=== PATIENT | female | born 1960 | race Caucasian/White ===

== ENCOUNTER 2017-11-13 13:48 | Emergency (ER) | payer OTHER ==
[2017-11-13] MEDS ORDERED: Hydrocodone/APAP 10 mg/325 mg Tab PO STA (15:21)
[2017-11-13 15:39] LABS: % BASOPHILS 0.2 % (0.0-2.0); % EOSINOPHILS 1.4 % (0.0-5.0); % MONOCYTES 7.4 % (2.0-10.0); EOSINOPHILE ABSOLUTE 0.1 Th/cmm (0.1-0.4); HEMOGLOBIN 15.4 gm/dL (12-16); LYMPHOCYTE ABSOLUTE 1.6 Th/cmm (1.5-3.0); MEAN CELL VOLUME 87.2 fl (81-100); MEAN CORPUSCULAR HEMOGLOBIN 29.2 pg (27.0-31.0); MEAN CORPUSCULAR HGB CONC 33.6 pg (28.0-36.0); MEAN PLATELET VOLUME 7.7 fl; MONOCYTE ABSOLUTE 0.5 Th/cmm (0.3-1.0); NEUTROPHILE ABSOLUTE 3.9 Th/cmm (1.8-8.0); PLATELET COUNT 218 Th/cmm (150-400); RED BLOOD COUNT 5.28 Mil/cmm (3.80-5.10); RED CELL DISTRIBUTION WIDTH 13.5 % (11.5-20.0); WHITE BLOOD COUNT 6.1 Th/cmm (4.8-10.8)
[2017-11-13 15:45] LABS: ALB/GLOB RATIO 1.5 (1.0-1.8); ALBUMIN 4.2 gm/dL (3.7-5.3); ALKALINE PHOSPHATASE 70 U/L (34-104); ANION GAP 8.6 (7.0-16.0); BUN - UREA NITROGEN 9 mg/dL (7-25); CALCIUM SERUM 9.8 mg/dL (8.6-10.3); CARBON DIOXIDE 31.3 mEq/L (21.0-31.0); CHLORIDE 100 mEq/L (98-107); CREATININE - SERUM 0.9 mg/dL (0.6-1.2); GFR AFRICAN-AMERICAN > 60.0 ml/min (>90); GFR NON AFRICAN-AMERICAN > 60.0 ml/min; GLUCOSE 102 mg/dL (70-105); POTASSIUM SERUM 3.9 mEq/L (3.5-5.1); SGOT 23 U/L (13-39); SGPT/ALT 26 U/L (7-52); SODIUM SERUM 136 mEq/L (136-145); TOTAL PROTEIN,SERUM 7.1 gm/dL (6.0-8.3)
--- NOTE | 2017-11-13 15:54 | ER Physician Documentation ---
DATE OF SERVICE: INCOMPLETE DICTATION IDENTIFICATION: A 57-year-old patient, date of 1960, she is full code, 1.65 meters, resulting in body surface area 2.12. She is weighing 106.594 kilograms. Will need BiPAP on this patient. DICTATION ENDS ABRUPTLY. JOB# [id number]
--- NOTE | 2017-11-13 16:37 | Transfer Summary ---
DATE OF TRANSFER: FINAL REPORT The patient is going home on crutches and braces and the patient will be given some medications of Ultram to be taken for pain along with Protonix 40 mg once a day, Ultram 50 mg 3 times a day and Protonix 40 mg twice a day and hopefully that should help her and then she will see her own physician. JOB# [id number]
--- NOTE | 2017-11-13 20:59 | ER Physician Documentation ---
DATE OF SERVICE: EMERGENCY ROOM EVALUATION AND TREATMENT The patient is in bed #4. She came here at 1433, within a matter of half hour to 40 minutes, the patient came with a chief complaint of history of fall walking down from the steps on the stool and then she injured her right knee and she was having pain and she was told about a year ago, she has a tear in the meniscus in the right knee and she should go and get the MRI done, but she did not follow the instructions. She knows that she did not get the MRI and I informed her that our institution at the current moment does not have an MRI machine and she said she does not mind, just get the x-ray, give her the pain medication, then she will go to her doctor or orthopedic doctor and do the needful. HISTORY OF PRESENT ILLNESS: The patient is a heavy set woman. She was walking on a step downwards and she fell down and hurt her, bandaged right knee, which is swollen, painful and tender and there seems to be slight fluid around the joint. Clinically, the patient has no fever. The patient has a previous injury to the right knee and the right meniscus was injured. She was advised to take MRI or x-rays done, but she did not follow it and she does not follow it up to now, up to 1 year has passed. She said she had to go to [place] and other things are more important, so it was not done. She does not have any other acute complaints. Her past history of paroxysmal atrial fibrillation twice for which she is getting sotalol 120 mg twice a day. Her past history is positive for appendicectomy. She has C-sections for child for 2 boys, 2 girls, but she has had a total hysterectomy done for cyst or some other tumor that was on the uterus, I am not sure what reason this was done. Her other past history is negative for myocardial infarction, rheumatic fever or any chest pain or using any nitroglycerin. She denied any radiofrequency ablation or other procedures done on her. FAMILY HISTORY: Father is alive, but had a stroke. Mother of cancer of the cervix. The patient has 1 sister and 3 brothers. Patient's height is 5 feet 5 inches and I told you the weight before. REVIEW OF SYSTEMS: EYES: There is no history of double vision, blurring, blindness, no exophthalmus. ENT: No history of ear discharge. Pharyngeal, pharyngitis or flu or anything. PULMONARY: No history of pneumonia, TB, pulmonary embolism, COPD, emphysema, bronchitis. GASTROINTESTINAL: No history of any epigastric pain or vomiting blood or cirrhotic liver. Gastrointestinal yoon, no history of any peptic ulcer disease, vomiting blood, esophageal varices bleeding, rectal bleeding or upper GI bleeding. No history of pancreatitis. ENDOCRINE: No history of diabetes mellitus, hypo or hyperthyroidism. Endocrine yoon otherwise, the patient also has morbid obesity, is noted with weight of 106.594 kilogram. BONES AND JOINTS: Injury to the right knee as I mentioned. Essentially same as mentioned above. CARDIAC-YOON: The patient has no history of myocardial infarction, rheumatic fever, valvular heart disease/angina pectoris. No history of any CVA and no history of any cardioversion done on her. GENITOURINARY: No burning, frequency, or dysuria. HORMONAL-YOON: There is no discomfort. HEMATOLOGY/ONCOLOGY: The patient has no cancer or tumor. PHYSICAL EXAMINATION: GENERAL: The patient appears to be comfortable except for the pain in the right knee. She does not have any evidence of gross congestive heart failure. Neck veins are not distended. Jugular venous pressure is normal. Carotids are normal. Heart rate appears to be close to 60. Heart sounds appears to be somewhat distant, probably on account of sotalol 120 mg b.i.d. 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 HEART: Reveals distant heart sounds, soft heart sounds and third heart sound is absent. Fourth heart sound is soft and distant. LUNGS: Clear without any rales, rhonchi, or bronchial breathing. ABDOMEN: Obese, otherwise benign, negative except for surgical scar. She had some laparoscopic surgery done because of suspicion of infection in the belly because she was not getting , but they found some problem and fixed it. It was done in one of the hospital, surrounding or institution. No problem in the liver, no problem in the pancreas. There is no tenderness in the epigastric area. CENTRAL NERVOUS SYSTEM: Appears to be moving all the extremities. Reflexes are normal. Plantars are downgoing. CLINICAL IMPRESSION: 1. The patient had a history of fall and injury to the right knee, which is swollen, painful, tender and some fluid seems to be collected. We do not have an MRI machine, is awaited with the patient, but she wants us to get x-rays done and give her some pain medications. We will give the knee brace and give her the crutches and then she will see her physician or go to other institution or whatever she feels like deciding and any other help that our nurses can give as far as the names of her orthopedic surgeon will be done by ourselves. 2. Morbid obesity. 3. Paroxysmal atrial fibrillation. 4. History of appendicectomy. 5. History of section, the patient has 4 child from that 2 girls, 2 boys. 6. History of hysterectomy secondary to cyst. 7. The patient has a history of some kind of stress. 8. Morbid obesity. The EKG was done which showed normal sinus rhythm, low voltage in standard and extremity leads and there is evidence of T-wave inversions in the inferior leads as well as the anterior leads, which could be consistent with ischemia in my opinion, I would go more for in the form of ischemia, so, we will get some BNP and further EKGs done. BNP done and troponin I done. JOB# [id number]
--- NOTE | 2017-11-14 09:18 | Diagnostic Imaging Report ---
CHEST X-RAY: AP view INDICATION: CHF COMPARISON: None FINDINGS: Chronic changes are seen with no focal consolidation or evidence of CHF. Heart size is normal. Osseous structures are intact. IMPRESSION: No focal consolidation or radiographic evidence of CHF.
--- NOTE | 2017-11-14 09:24 | Diagnostic Imaging Report ---
Right knee 2 views Indication: Pain rule out fracture Comparison: none Findings: Mild degenerative changes are noted. No evidence of an acute fracture. There may be a trace joint effusion. No significant focal soft tissue swelling. Note exam is limited as oblique views are not obtained. Impression: No evidence of an acute fracture. Mild degenerative changes and probable trace effusion. In the setting of trauma, if clinical symptoms persist and there is continued concern for an occult fracture, follow up exams in 5-7 days is suggested.
== END 2017-11-13 17:10 | disposition home or self-care (01) ==
LOC: ER 13:48
DX: M25.561 Pain in right knee (principal); I48.91 Unspecified atrial fibrillation; E66.01 Morbid (severe) obesity due to excess calories
CPT/HCPCS: 99285; 96374; 93005; 71045; 73560; 84484; 36415; 86141; 85025; 80053; C9113